=== PATIENT | male | born 2000 ===

== ENCOUNTER 2025-04-06 18:22 | Emergency (ER) | payer OTHER ==
[~2025-04-06] VITALS: Ht 177.8 cm; Wt 83.0 kg
[2025-04-06 18:36] LABS: BASOPHILS 0.4 % (0.2-1.2); EOSINOPHILS 1.3 % (0.8-7.0); LYMPHOCYTES 17.4 % (21.8-53.1); MCH 30.7 PG (25.7-32.2); MCHC 35.2 g/dL (32.3-36.5); MCV 87.1 fL (79.0-92.2); MONOCYTES 10.4 % (5.3-12.2); NEUTROPHILS 70.1 % (34.0-67.9); RBC 5.21 M/uL (4.63-6.08)
[2025-04-06] MEDS ORDERED: SODIUM CHLORIDE 0.9% 1,000 ML IV ONE (18:45)
[2025-04-06 19:02] LABS: ALT (SGPT) 107.0 U/L (14-59); AST (SGOT) 25.0 U/L (15-37); GLOMERULAR FILTRATION RATE,EST 102.0 mL/min (>60); PROTEIN, TOTAL 7.6 g/dL (6.4-8.2); UREA NITROGEN 11.0 mg/dL (7-18)
[2025-04-06 19:06] LABS: BLOOD/HGB, URINE NEGATIVE (Negative); KETONE, URINE NEGATIVE (Negative); LEUK ESTERASE, URINE NEGATIVE (negative); NITRITE, URINE NEGATIVE (negative)
[2025-04-06 19:26] LABS: AMPHETAMINES, URINE NEGATIVE (NEGATIVE); BARBITURATES, URINE NEGATIVE (NEGATIVE); BENZODIAZEPINE, URINE POSITIVE (NEGATIVE); CANNABINOID, URINE NEGATIVE (NEGATIVE); COCAINE, URINE NEGATIVE (NEGATIVE); ECSTASY, URINE NEGATIVE (NEGATIVE); FENTANYL, URINE NEGATIVE (NEGATIVE); METHADONE, URINE NEGATIVE (NEGATIVE); OPIATES, URINE NEGATIVE (NEGATIVE); OXYCODONE, URINE NEGATIVE (NEGATIVE); PHENCYCLIDINE, URINE NEGATIVE (NEGATIVE)
[2025-04-06] MEDS ORDERED: MIDAZOLAM HCL 2 MG/2 ML VIAL IV ONE ×2 (20:00→23:30)
[2025-04-06] MEDS ORDERED: PANTOPRAZOLE SODIUM 40 MG/10 ML VIAL IV ONE (20:45)
[2025-04-06] MEDS ORDERED: SODIUM CHLORIDE 0.9% 1,000 ML IV SCH (20:45)
[2025-04-06 23:30] VITALS: BP 103/65
--- NOTE | 2025-04-08 22:16 | EKG ---
[facility] [address] [place] [address] Signed Normal sinus rhythm Normal ECG No previous ECGs available Confirmed by Carson Padilla MD () on 04/08/2025 10:16:40 PM Electronically Signed By: CARSON PADILLA MD 04/08/25 2216 PATIENT NAME: CORDEROROSSANA WILLY SOLARES Electrocardiogram DATE OF : [birth year] PHYSICIAN: CARSON PADILLA MD REPORT #: [id number] REPORT IS CONFIDENTIAL AND NOT TO BE RELEASED WITHOUT AUTHORIZATION
== END 2025-04-06 23:30 | disposition short-term general hospital (02) ==
LOC: ED 18:22
PROVIDERS: Emergency Medicine; Family Medicine
DX: G40.401 Other generalized epilepsy and epileptic syndromes, not intractable, with status epilepticus (principal)
CPT/HCPCS: 31500; 31720; 36415; 51702; 70450; 71045; 72125; 80053; 80307; 81003; 82803; 83690; 83880; 84484; 85025; 93005; 93010; 94799; 96374; 96375; 96376; 99285-25; G0480; J1200; J1953; J2250; J2470; J2704; J7030